=== PATIENT | male | born 1950 | race African-American/Black ===

== ENCOUNTER 2019-08-05 09:00 | Inpatient (IN) ==
[2019-08-05] MEDS ORDERED: DEXTROSE 50% 25 GM/50 ML VIAL IV PRN ×3 (12:04→18:11)
[2019-08-05] MEDS ORDERED: GLUCAGON 1 MG VIAL IM PRN ×2 (12:04→12:13)
[2019-08-05] MEDS ORDERED: ONDANSETRON 4 MG/2 ML VIAL IV PRN (12:04)
[2019-08-05] MEDS ORDERED: ACETAMINOPHEN 325 MG TABLET PO PRN (12:04)
[2019-08-05] MEDS ORDERED: DEXTROSE 10% 250 ML BAG IV PRN (12:10)
[2019-08-05 14:23] LABS: Basophils % 0.1 % (0.0-0.8); Eosinophils # 0.2 10*3/uL (0.0-0.87); Eosinophils % 2.8 % (0.00-10.9); Hematocrit 27.2 VOL% (42.0-52.0); Hemoglobin 8.4 GM/DL (14.0-18.0); Immature Granulocytes % 1.8 %; Immature Granulocytes Absolute 0.12 #; Lymphocytes # 0.5 10*3/uL (1.4-4.0); Mean Corpuscular HGB Conc 30.9 GM/DL (32-36); Mean Corpuscular Volume 86.1 FL (87-102); Mean Platelet Volume 9.5 FL (9.6-12.0); Monocytes % 15.8 % (1.7-12.7); Neutrophils % 72.5 % (38.7-73.9); Platelet Count 217 T/CUMM (130-400); Red Blood Count 3.16 MC/CUMM (3.8-5.5); White Blood Count 6.7 T/CUMM (4-12)
[2019-08-05 14:45] LABS: Alanine Aminotransferase 64 U/L (16-61); Albumin 2.9 G/DL (3.4-5.0); Alkaline Phosphatase 73 U/L (45-117); Aspartate Amino Transferase 77 U/L (0-37); Bilirubin,Total < 0.39 MG/DL (0.2-1.0); Blood Urea Nitrogen 48 MG/DL (7-18); Calcium 9.1 MG/DL (8.5-10.1); Estimated Glom Filtration Rate 18 ML/MIN; Glucose 119 MG/DL (74-106); Osmolality,Calculated 286.8 MOS/KG (273-304); Total Protein 7.9 G/DL (6.4-8.3)
[2019-08-05 14:58] LABS: Anisocytosis 2+; Eosinophils 2 % (0-10); Hypochromasia 1+; Lymphocytes 13 % (20-55); Microcytosis 1+; Segmented Neutrophils 76 % (50-85); Total Cells Counted 100
[2019-08-05 14:59] LABS: Ovalocytes Slight
[2019-08-05 15:55] LABS: Ferritin 641.2 ng/ml (26-388)
[2019-08-05] MEDS ORDERED: FUROSEMIDE 40 MG TABLET PO PRN (15:58)
[2019-08-05 16:31] LABS: Amorphous Crystals,Urine Occasional /HPF (Few); Apearance,Urine Slightly Hazy (Clear); Bacteria,Urine Occasional /HPF (Few); Bilirubin,Urine Negative (Negative); Blood, Urine Negative (Negative); Glucose,Urine (UA) Negative (Negative); Ketones,Urine Negative (Negative); Mucus,Urine Occasional /LPF (Occasional); Nitrite,Urine Negative (Negative); Protein,Urine 100 MG/DL; Squamous Epithelial Cell,Urine Occasional /HPF (0-10); Urine Color Yellow (Yellow); Urine Specific Gravity 1.013 (1.001-1.035); Urine Urobilinogen < 2.0 EU/DL (0.2-1.0)
[2019-08-05] MEDS ORDERED: ENOXAPARIN 60 MG/0.6 ML SYRINGE SUBCUT SCH (18:30)
[2019-08-05] MEDS: ENOXAPARIN 30 MG/0.3 ML SYRINGE SUBCUT SCH (20:16)
[2019-08-05] MEDS: cefTRIAXone 1,000 MG in SYRINGE 1 EACH IV SCH (20:16)
[2019-08-05] MEDS: AZITHROMYCIN INJ 500 MG in SODIUM CHLORIDE 0.9% 250 ML IV SCH (21:30)
[2019-08-05] MEDS: INSULIN LISPRO 100 UNIT/ML SUBCUT SCH (22:23)
[2019-08-06 04:01] LABS: Basophils % 0.2 % (0.0-0.8); Eosinophils # 0.2 10*3/uL (0.0-0.87); Eosinophils % 3.4 % (0.00-10.9); Hematocrit 24.9 VOL% (42.0-52.0); Hemoglobin 7.7 GM/DL (14.0-18.0); Immature Granulocytes % 2.1 %; Immature Granulocytes Absolute 0.11 #; Lymphocytes # 0.6 10*3/uL (1.4-4.0); Lymphocytes % 11.4 % (21.2-54.2); Mean Corpuscular HGB Conc 30.9 GM/DL (32-36); Mean Corpuscular Volume 85.6 FL (87-102); Mean Platelet Volume 9.6 FL (9.6-12.0); Neutrophils % 66.9 % (38.7-73.9); Platelet Count 202 T/CUMM (130-400); Red Blood Count 2.91 MC/CUMM (3.8-5.5); White Blood Count 5.3 T/CUMM (4-12)
[2019-08-06 04:33] LABS: Alanine Aminotransferase 60 U/L (16-61); Albumin 2.5 G/DL (3.4-5.0); Alkaline Phosphatase 66 U/L (45-117); Aspartate Amino Transferase 59 U/L (0-37); Bilirubin,Total < 0.39 MG/DL (0.2-1.0); Blood Urea Nitrogen 58 MG/DL (7-18); Calcium 8.6 MG/DL (8.5-10.1); Estimated Glom Filtration Rate 16 ML/MIN; Glucose 130 MG/DL (74-106); HDL Cholesterol 34 MG/DL (40-60); Osmolality,Calculated 294.5 MOS/KG (273-304); Risk Ratio 3.68; Triglycerides 115 MG/DL (2-150)
[2019-08-06 04:39] LABS: Band Neutrophils 1 % (0-10); Eosinophils 2 % (0-10); Hypochromasia 1+; Lymphocytes 9 % (20-55); Microcytosis Slight; Myelocytes 1 %; Platelet Estimate Normal; Segmented Neutrophils 72 % (50-85); Total Cells Counted 100
[2019-08-06 04:52] LABS: Ferritin 582.5 ng/ml (26-388)
[2019-08-06] MEDS: INSULIN LISPRO 100 UNIT/ML SUBCUT SCH ×4 (08:24→20:02)
[2019-08-06] MEDS: METOPROLOL SUCCINATE XL 100 MG TABLET PO SCH (08:25)
[2019-08-06] MEDS: amLODIPine 10 MG TABLET PO SCH (08:25)
[2019-08-06] MEDS ORDERED: ATORVASTATIN 40 MG TABLET PO SCH (09:00)
[2019-08-06] MEDS ORDERED: PANTOPRAZOLE 40 MG TABLET PO SCH (09:00)
[2019-08-06] MEDS ORDERED: allopurinoL 100 MG TABLET PO SCH (09:00)
[2019-08-06] MEDS: AZITHROMYCIN INJ 500 MG in SODIUM CHLORIDE 0.9% 250 ML IV SCH (19:55)
[2019-08-06] MEDS: ENOXAPARIN 30 MG/0.3 ML SYRINGE SUBCUT SCH (20:02)
[2019-08-06] MEDS: cefTRIAXone 1,000 MG in SYRINGE 1 EACH IV SCH (20:12)
[2019-08-07 07:05] LABS: Basophils % 0.4 % (0.0-0.8); Eosinophils # 0.2 10*3/uL (0.0-0.87); Eosinophils % 4.6 % (0.00-10.9); Hematocrit 25.7 VOL% (42.0-52.0); Immature Granulocytes % 5.2 %; Immature Granulocytes Absolute 0.26 #; Lymphocytes # 0.7 10*3/uL (1.4-4.0); Lymphocytes % 13.3 % (21.2-54.2); Mean Corpuscular HGB Conc 31.1 GM/DL (32-36); Mean Corpuscular Volume 85.7 FL (87-102); Monocytes % 11.9 % (1.7-12.7); Neutrophils % 64.6 % (38.7-73.9); Platelet Count 240 T/CUMM (130-400); Red Cell Distribution Width 15.1 % (9.3-17.3)
[2019-08-07 07:19] LABS: Ferritin 510.4 ng/ml (26-388)
[2019-08-07 07:24] LABS: Alanine Aminotransferase 60 U/L (16-61); Albumin 2.6 G/DL (3.4-5.0); Alkaline Phosphatase 67 U/L (45-117); Aspartate Amino Transferase 45 U/L (0-37); Bilirubin,Total < 0.39 MG/DL (0.2-1.0); Blood Urea Nitrogen 61 MG/DL (7-18); Calcium 8.4 MG/DL (8.5-10.1); Estimated Glom Filtration Rate 17 ML/MIN; Glucose 110 MG/DL (74-106); Osmolality,Calculated 296.4 MOS/KG (273-304)
[2019-08-07 07:37] LABS: Band Neutrophils 6 % (0-10); Eosinophils 2 % (0-10); Lymphocytes 14 % (20-55); Metamyelocytes 1 %; Myelocytes 1 %; Segmented Neutrophils 63 % (50-85); Total Cells Counted 100
[2019-08-07 07:38] LABS: Anisocytosis 1+; Ovalocytes Few; Platelet Estimate Normal; Poikilocytosis Slight
[2019-08-07] MEDS: METOPROLOL SUCCINATE XL 100 MG TABLET PO SCH (08:57)
[2019-08-07] MEDS: INSULIN LISPRO 100 UNIT/ML SUBCUT SCH ×2 (08:58→13:02)
[2019-08-07] MEDS: amLODIPine 10 MG TABLET PO SCH (08:58)
[2019-08-07] MEDS ORDERED: AZITHROMYCIN 250 MG TABLET PO SCH (09:00)
[2019-08-07 13:02] VITALS: BP 157/71
== END 2019-08-07 12:35 | disposition home or self-care (01) | DRG 194 ==
LOC: SUATTDRO 11:07 → N.2E 11:07
PROVIDERS: ADMIT Internal Medicine; ATTEND Internal Medicine

== ENCOUNTER 2022-01-06 12:13 | Inpatient (IN) ==
[2022-01-06] MEDS ORDERED: FUROSEMIDE 100 MG/10 ML VIAL ONE (12:40)
[2022-01-06] MEDS ORDERED: FUROSEMIDE INJ 160 MG in SODIUM CHLORIDE 0.9% 50 ML IV STA ×2 (12:47→12:50)
[2022-01-06 13:17] LABS: Basophils % 0.2 % (0.0-0.8); Eosinophils # 0.2 10*3/uL (0.0-0.87); Eosinophils % 3.5 % (0.00-10.9); Hematocrit 26.1 VOL% (42.0-52.0); Hemoglobin 7.8 GM/DL (14.0-18.0); Immature Granulocytes % 1.4 %; Immature Granulocytes Absolute 0.06 #; Lymphocytes # 0.7 10*3/uL (1.4-4.0); Lymphocytes % 16.1 % (21.2-54.2); Mean Corpuscular HGB Conc 29.9 GM/DL (32-36); Mean Platelet Volume 10.3 FL (9.6-12.0); Monocytes # 0.5 10*3/uL (0.11-0.8); Neutrophils % 67.8 % (38.7-73.9); Platelet Count 153 T/CUMM (130-400); Red Blood Count 3.07 MC/CUMM (3.8-5.5); Red Cell Distribution Width 16.5 % (9.3-17.3); White Blood Count 4.3 T/CUMM (4-12)
[2022-01-06 13:38] LABS: Alanine Aminotransferase 18 U/L (16-61); Albumin 3.4 G/DL (3.4-5.0); Alkaline Phosphatase 84 U/L (45-117); Aspartate Amino Transferase 9 U/L (0-37); Bilirubin,Total < 0.39 MG/DL (0.20-1.00); Blood Urea Nitrogen 55 MG/DL (7-18); Calcium 8.8 MG/DL (8.5-10.1); Carbon Dioxide 20 MMOL/L (21-32); Chloride 116 MMOL/L (98-107); Glucose 109 MG/DL (74-106); Osmolality,Calculated 303.7 MOS/KG (273-304); Potassium 4.3 MMOL/L (3.5-5.1); Sodium 145 MMOL/L (136-145)
[2022-01-06] MEDS ORDERED: ONDANSETRON 4 MG/2 ML VIAL IV PRN (13:56)
[2022-01-06] MEDS ORDERED: BICILLIN LA 1,200,000 UNIT/2 ML SYRINGE IM STA (14:50)
[2022-01-06 16:14] LABS: % Iron Saturation 17.8 % (18-50); Ferritin 173.4 ng/mL (26-388)
[2022-01-06 16:17] LABS: Folate 11.43 NG/ML (5.38-24.0)
[2022-01-06] MEDS: INSULIN LISPRO 100 UNIT/ML SUBCUT SCH ×2 (17:15→20:58)
[2022-01-06] MEDS: HEPARIN 5,000 UNIT/1 ML VIAL SUBCUT SCH (21:02)
[2022-01-07] MEDS ORDERED: METOPROLOL SUCCINATE XL 100 MG TABLET PO ONE (00:17)
[2022-01-07] MEDS: hydrALAZINE 20 MG/1 ML VIAL IV PRN ×2 (04:46→16:50)
[2022-01-07 05:02] LABS: Basophils % 0.3 % (0.0-0.8); Eosinophils # 0.2 10*3/uL (0.0-0.87); Eosinophils % 4.8 % (0.00-10.9); Hematocrit 25.9 VOL% (42.0-52.0); Hemoglobin 7.9 GM/DL (14.0-18.0); Immature Granulocytes % 1.5 %; Immature Granulocytes Absolute 0.06 #; Lymphocytes # 0.7 10*3/uL (1.4-4.0); Lymphocytes % 16.8 % (21.2-54.2); Mean Corpuscular HGB Conc 30.5 GM/DL (32-36); Mean Corpuscular Volume 85.8 FL (87-102); Monocytes # 0.5 10*3/uL (0.11-0.8); Monocytes % 11.7 % (1.7-12.7); Neutrophils % 64.9 % (38.7-73.9); Platelet Count 150 T/CUMM (130-400); Red Blood Count 3.02 MC/CUMM (3.8-5.5); Red Cell Distribution Width 16.3 % (9.3-17.3); White Blood Count 3.9 T/CUMM (4-12)
[2022-01-07 05:20] LABS: Alanine Aminotransferase 19 U/L (16-61); Albumin 3.5 G/DL (3.4-5.0); Alkaline Phosphatase 85 U/L (45-117); Aspartate Amino Transferase 13 U/L (0-37); Bilirubin,Total < 0.39 MG/DL (0.20-1.00); Blood Urea Nitrogen 63 MG/DL (7-18); Calcium 8.9 MG/DL (8.5-10.1); Carbon Dioxide 22 MMOL/L (21-32); Chloride 118 MMOL/L (98-107); Glucose 100 MG/DL (74-106); Osmolality,Calculated 311.3 MOS/KG (273-304); Potassium 4.4 MMOL/L (3.5-5.1); Sodium 148 MMOL/L (136-145); Total Protein 7.2 G/DL (6.4-8.2)
[2022-01-07 05:27] LABS: Risk Ratio 2.32; Thyroid Stimulating Hormone 1.85 uIU/ml (0.358-3.74); VLDL Cholesterol 16.6 MG/DL
[2022-01-07] MEDS ORDERED: FUROSEMIDE 40 MG/4 ML VIAL IV SCH (06:00)
[2022-01-07] MEDS: INSULIN LISPRO 100 UNIT/ML SUBCUT SCH ×4 (07:37→21:33)
[2022-01-07] MEDS ORDERED: FUROSEMIDE 40 MG/4 ML VIAL IV ONE (09:48)
[2022-01-07] MEDS: HEPARIN 5,000 UNIT/1 ML VIAL SUBCUT SCH ×2 (10:17→20:10)
[2022-01-07] MEDS ORDERED: DEXTROSE 10% 250 ML BAG IV PRN (11:26)
[2022-01-07] MEDS ORDERED: GLUCAGON 1 MG VIAL IM PRN (11:26)
[2022-01-07] MEDS: FERRIC GLUCONATE COMPLEX 125 MG in SODIUM CHLORIDE 0.9% 100 ML IV SCH (12:08)
[2022-01-07] MEDS: PANTOPRAZOLE 40 MG TABLET PO SCH (12:08)
[2022-01-07] MEDS: METOPROLOL TARTRATE 100 MG TABLET PO SCH (20:07)
[2022-01-07] MEDS ORDERED: hydrALAZINE 20 MG/1 ML VIAL IV ONE (21:03)
[2022-01-08] MEDS: hydrALAZINE 20 MG/1 ML VIAL IV PRN (00:13)
[2022-01-08 05:44] LABS: Basophils % 0.3 % (0.0-0.8); Eosinophils # 0.2 10*3/uL (0.0-0.87); Eosinophils % 3.9 % (0.00-10.9); Hematocrit 27.9 VOL% (42.0-52.0); Hemoglobin 8.3 GM/DL (14.0-18.0); Immature Granulocytes % 2.1 %; Immature Granulocytes Absolute 0.08 #; Lymphocytes # 0.6 10*3/uL (1.4-4.0); Lymphocytes % 16.4 % (21.2-54.2); Mean Corpuscular HGB Conc 29.7 GM/DL (32-36); Mean Corpuscular Volume 86.1 FL (87-102); Mean Platelet Volume 10.6 FL (9.6-12.0); Monocytes # 0.4 10*3/uL (0.11-0.8); Monocytes % 10.9 % (1.7-12.7); Neutrophils % 66.4 % (38.7-73.9); Platelet Count 161 T/CUMM (130-400); Red Blood Count 3.24 MC/CUMM (3.8-5.5); Red Cell Distribution Width 16.5 % (9.3-17.3); White Blood Count 3.9 T/CUMM (4-12)
[2022-01-08 06:08] LABS: Alanine Aminotransferase 19 U/L (16-61); Albumin 3.5 G/DL (3.4-5.0); Alkaline Phosphatase 86 U/L (45-117); Aspartate Amino Transferase 12 U/L (0-37); Bilirubin,Total < 0.39 MG/DL (0.20-1.00); Blood Urea Nitrogen 67 MG/DL (7-18); Calcium 8.7 MG/DL (8.5-10.1); Carbon Dioxide 21 MMOL/L (21-32); Chloride 115 MMOL/L (98-107); Glucose 111 MG/DL (74-106); Osmolality,Calculated 307.7 MOS/KG (273-304); Potassium 4.2 MMOL/L (3.5-5.1); Sodium 145 MMOL/L (136-145); Total Protein 7.3 G/DL (6.4-8.2)
[2022-01-08] MEDS: INSULIN LISPRO 100 UNIT/ML SUBCUT SCH ×4 (07:29→20:14)
[2022-01-08] MEDS: ASPIRIN EC 81 MG TABLET PO SCH (08:14)
[2022-01-08] MEDS: PANTOPRAZOLE 40 MG TABLET PO SCH (08:15)
[2022-01-08] MEDS: HEPARIN 5,000 UNIT/1 ML VIAL SUBCUT SCH ×2 (08:15→20:16)
[2022-01-08] MEDS: ATORVASTATIN 40 MG TABLET PO SCH (08:15)
[2022-01-08] MEDS: FUROSEMIDE 40 MG/4 ML VIAL IV SCH (08:15)
[2022-01-08] MEDS: METOPROLOL TARTRATE 100 MG TABLET PO SCH ×2 (08:15→20:15)
[2022-01-08] MEDS: FERRIC GLUCONATE COMPLEX 125 MG in SODIUM CHLORIDE 0.9% 100 ML IV SCH (09:23)
[2022-01-08] MEDS: DOCUSATE SODIUM 100 MG CAPSULE PO SCH (20:16)
[2022-01-09] MEDS: guaiFENesin/CODEINE 5 ML LIQUID PO PRN (03:07)
[2022-01-09 04:20] LABS: Basophils % 0.5 % (0.0-0.8); Eosinophils # 0.2 10*3/uL (0.0-0.87); Hematocrit 26.4 VOL% (42.0-52.0); Hemoglobin 7.9 GM/DL (14.0-18.0); Immature Granulocytes % 1.6 %; Immature Granulocytes Absolute 0.06 #; Lymphocytes # 0.3 10*3/uL (1.4-4.0); Lymphocytes % 7.1 % (21.2-54.2); Mean Corpuscular HGB Conc 29.9 GM/DL (32-36); Mean Corpuscular Volume 86.6 FL (87-102); Mean Platelet Volume 10.7 FL (9.6-12.0); Monocytes # 0.6 10*3/uL (0.11-0.8); Monocytes % 15.8 % (1.7-12.7); Platelet Count 132 T/CUMM (130-400); Red Blood Count 3.05 MC/CUMM (3.8-5.5); Red Cell Distribution Width 16.6 % (9.3-17.3); White Blood Count 3.8 T/CUMM (4-12)
[2022-01-09 04:46] LABS: Calcium 8.7 MG/DL (8.5-10.1); Eosinophils 2 % (0-10); Lymphocytes 8 % (20-55); Potassium 4.5 MMOL/L (3.5-5.1); Total Cells Counted 100
[2022-01-09 04:47] LABS: Hypochromia Slight; Microcytosis Slight; Ovalocytes Slight
[2022-01-09 04:48] LABS: Platelet Estimate Normal
[2022-01-09 05:56] LABS: Alanine Aminotransferase 20 U/L (16-61); Albumin 3.5 G/DL (3.4-5.0); Alkaline Phosphatase 82 U/L (45-117); Aspartate Amino Transferase 21 U/L (0-37); Bilirubin,Total < 0.39 MG/DL (0.20-1.00); Blood Urea Nitrogen 67 MG/DL (7-18); Calcium 8.9 MG/DL (8.5-10.1); Carbon Dioxide 18 MMOL/L (21-32); Chloride 113 MMOL/L (98-107); Glucose 107 MG/DL (74-106); Osmolality,Calculated 301.1 MOS/KG (273-304); Potassium 4.5 MMOL/L (3.5-5.1); Sodium 142 MMOL/L (136-145); Total Protein 7.3 G/DL (6.4-8.2)
[2022-01-09] MEDS: METOPROLOL TARTRATE 100 MG TABLET PO SCH ×2 (09:22→21:49)
[2022-01-09] MEDS: ASPIRIN EC 81 MG TABLET PO SCH (09:22)
[2022-01-09] MEDS: PANTOPRAZOLE 40 MG TABLET PO SCH (09:22)
[2022-01-09] MEDS: DOCUSATE SODIUM 100 MG CAPSULE PO SCH ×2 (09:22→21:49)
[2022-01-09] MEDS: ATORVASTATIN 40 MG TABLET PO SCH (09:22)
[2022-01-09] MEDS: FUROSEMIDE 40 MG/4 ML VIAL IV SCH (09:23)
[2022-01-09] MEDS: HEPARIN 5,000 UNIT/1 ML VIAL SUBCUT SCH ×2 (09:24→21:49)
[2022-01-09] MEDS: INSULIN LISPRO 100 UNIT/ML SUBCUT SCH ×3 (11:50→21:50)
[2022-01-09] MEDS: FERRIC GLUCONATE COMPLEX 125 MG in SODIUM CHLORIDE 0.9% 100 ML IV SCH (11:56)
[2022-01-09] MEDS: hydrALAZINE 20 MG/1 ML VIAL IV PRN (11:57)
[2022-01-09] MEDS: DOXAZOSIN 1 MG TABLET PO SCH (15:37)
[2022-01-10] MEDS: hydrALAZINE 20 MG/1 ML VIAL IV PRN (00:29)
[2022-01-10 06:09] LABS: Basophils % 0.2 % (0.0-0.8); Eosinophils # 0.1 10*3/uL (0.0-0.87); Eosinophils % 1.6 % (0.00-10.9); Hematocrit 25.3 VOL% (42.0-52.0); Hemoglobin 7.3 GM/DL (14.0-18.0); Immature Granulocytes % 2.7 %; Immature Granulocytes Absolute 0.12 #; Lymphocytes # 0.7 10*3/uL (1.4-4.0); Lymphocytes % 14.8 % (21.2-54.2); Mean Corpuscular HGB Conc 28.9 GM/DL (32-36); Mean Corpuscular Volume 87.8 FL (87-102); Mean Platelet Volume 10.5 FL (9.6-12.0); Monocytes # 1.1 10*3/uL (0.11-0.8); Monocytes % 25.1 % (1.7-12.7); Neutrophils % 55.6 % (38.7-73.9); Platelet Count 112 T/CUMM (130-400); Red Blood Count 2.88 MC/CUMM (3.8-5.5); Red Cell Distribution Width 16.8 % (9.3-17.3); White Blood Count 4.5 T/CUMM (4-12)
[2022-01-10 06:31] LABS: Hypochromia Slight
[2022-01-10 06:32] LABS: Microcytosis Slight; Ovalocytes Slight
[2022-01-10 06:38] LABS: Calcium 8.3 MG/DL (8.5-10.1); Potassium 4.2 MMOL/L (3.5-5.1)
[2022-01-10 06:39] LABS: Alanine Aminotransferase 23 U/L (16-61); Albumin 3.4 G/DL (3.4-5.0); Alkaline Phosphatase 73 U/L (45-117); Aspartate Amino Transferase 29 U/L (0-37); Bilirubin,Total < 0.39 MG/DL (0.20-1.00); Blood Urea Nitrogen 65 MG/DL (7-18); Calcium 8.3 MG/DL (8.5-10.1); Carbon Dioxide 22 MMOL/L (21-32); Chloride 111 MMOL/L (98-107); Glucose 120 MG/DL (74-106); Osmolality,Calculated 302.1 MOS/KG (273-304); Potassium 4.3 MMOL/L (3.5-5.1); Sodium 142 MMOL/L (136-145); Total Protein 6.6 G/DL (6.4-8.2)
[2022-01-10] MEDS: PANTOPRAZOLE 40 MG TABLET PO SCH (09:42)
[2022-01-10] MEDS: ATORVASTATIN 40 MG TABLET PO SCH (09:42)
[2022-01-10] MEDS: DOCUSATE SODIUM 100 MG CAPSULE PO SCH ×2 (09:42→21:02)
[2022-01-10] MEDS: DOXAZOSIN 1 MG TABLET PO SCH (09:42)
[2022-01-10] MEDS: FUROSEMIDE 40 MG/4 ML VIAL IV SCH (09:42)
[2022-01-10] MEDS: HEPARIN 5,000 UNIT/1 ML VIAL SUBCUT SCH ×2 (09:43→21:04)
[2022-01-10] MEDS: ASPIRIN EC 81 MG TABLET PO SCH (09:43)
[2022-01-10] MEDS: FERRIC GLUCONATE COMPLEX 125 MG in SODIUM CHLORIDE 0.9% 100 ML IV SCH (09:43)
[2022-01-10] MEDS: guaiFENesin/CODEINE 5 ML LIQUID PO PRN (09:49)
[2022-01-10] MEDS: METOPROLOL TARTRATE 100 MG TABLET PO SCH ×2 (09:50→21:02)
[2022-01-10] MEDS ORDERED: MAGNESIUM HYDROXIDE SUSP 30 ML UDCUP PO PRN (12:53)
[2022-01-10] MEDS ORDERED: EPOETIN ALFA-EPBX 10,000 UNIT/ML VIAL SUBCUT ONE ×2 (13:17→14:00)
[2022-01-10] MEDS: INSULIN LISPRO 100 UNIT/ML SUBCUT SCH ×4 (13:48→21:14)
[2022-01-10] MEDS: ACETAMINOPHEN 325 MG TABLET PO PRN ×2 (13:56→21:04)
[2022-01-11 04:56] LABS: Basophils % 0.2 % (0.0-0.8); Eosinophils % 0.7 % (0.00-10.9); Hematocrit 25.1 VOL% (42.0-52.0); Hemoglobin 7.2 GM/DL (14.0-18.0); Immature Granulocytes % 2.4 %; Immature Granulocytes Absolute 0.11 #; Lymphocytes # 0.7 10*3/uL (1.4-4.0); Lymphocytes % 15.9 % (21.2-54.2); Mean Corpuscular HGB Conc 28.7 GM/DL (32-36); Mean Corpuscular Volume 90.6 FL (87-102); Mean Platelet Volume 11.3 FL (9.6-12.0); Monocytes % 22.9 % (1.7-12.7); Neutrophils % 57.9 % (38.7-73.9); Platelet Count 114 T/CUMM (130-400); Red Blood Count 2.77 MC/CUMM (3.8-5.5); Red Cell Distribution Width 16.9 % (9.3-17.3); White Blood Count 4.5 T/CUMM (4-12)
[2022-01-11 05:20] LABS: Band Neutrophils 1 % (0-10); Eosinophils 2 % (0-10); Lymphocytes 16 % (20-55); Total Cells Counted 100
[2022-01-11 05:21] LABS: Hypochromia Slight; Microcytosis Slight
[2022-01-11 05:22] LABS: Ovalocytes Slight
[2022-01-11 05:45] LABS: Alanine Aminotransferase 25 U/L (16-61); Albumin 3.2 G/DL (3.4-5.0); Alkaline Phosphatase 75 U/L (45-117); Aspartate Amino Transferase 29 U/L (0-37); Bilirubin,Total < 0.39 MG/DL (0.20-1.00); Blood Urea Nitrogen 74 MG/DL (7-18); Calcium 8.2 MG/DL (8.5-10.1); Carbon Dioxide 22 MMOL/L (21-32); Chloride 111 MMOL/L (98-107); Glucose 127 MG/DL (74-106); Osmolality,Calculated 306.1 MOS/KG (273-304); Potassium 4.6 MMOL/L (3.5-5.1); Sodium 142 MMOL/L (136-145)
[2022-01-11] MEDS: INSULIN LISPRO 100 UNIT/ML SUBCUT SCH ×4 (07:52→20:46)
[2022-01-11] MEDS: ACETAMINOPHEN 325 MG TABLET PO PRN ×2 (08:35→21:34)
[2022-01-11] MEDS: DOCUSATE SODIUM 100 MG CAPSULE PO SCH ×2 (08:35→20:43)
[2022-01-11] MEDS: DOXAZOSIN 1 MG TABLET PO SCH (08:36)
[2022-01-11] MEDS: PANTOPRAZOLE 40 MG TABLET PO SCH (08:36)
[2022-01-11] MEDS: ASPIRIN EC 81 MG TABLET PO SCH (08:37)
[2022-01-11] MEDS: ATORVASTATIN 40 MG TABLET PO SCH (08:37)
[2022-01-11] MEDS: HEPARIN 5,000 UNIT/1 ML VIAL SUBCUT SCH (08:38)
[2022-01-11] MEDS: METOPROLOL TARTRATE 100 MG TABLET PO SCH ×2 (08:39→20:46)
[2022-01-11] MEDS: FERRIC GLUCONATE COMPLEX 125 MG in SODIUM CHLORIDE 0.9% 100 ML IV SCH (08:41)
[2022-01-11] MEDS: POLYETHYLENE GLYCOL POWDER 17 GM PACK PO SCH (08:50)
[2022-01-11] MEDS ORDERED: FUROSEMIDE 40 MG/4 ML VIAL IV SCH (09:00)
[2022-01-11 14:35] LABS: Bacteria,Urine Occasional /HPF (Few); Bilirubin,Urine Negative (Negative); Blood, Urine Small mg/dL (Negative); Glucose,Urine (UA) Negative (Negative); Ketones,Urine Negative (Negative); Mucus,Urine Occasional /LPF (Occasional); Nitrite,Urine Negative (Negative); Protein,Urine 100 mg/dL (Negative); Urine Appearance CLEAR (Clear); Urine Color Straw (Yellow); Urine Urobilinogen < 2.0 eU/dL (<2.0)
[2022-01-12 07:38] LABS: Basophils % 0.2 % (0.0-0.8); Eosinophils % 0.8 % (0.00-10.9); Hematocrit 25.4 VOL% (42.0-52.0); Hemoglobin 7.3 GM/DL (14.0-18.0); Immature Granulocytes % 1.9 %; Immature Granulocytes Absolute 0.09 #; Lymphocytes # 0.9 10*3/uL (1.4-4.0); Lymphocytes % 18.3 % (21.2-54.2); Mean Corpuscular HGB Conc 28.7 GM/DL (32-36); Mean Corpuscular Volume 89.4 FL (87-102); Mean Platelet Volume 10.2 FL (9.6-12.0); Monocytes # 0.8 10*3/uL (0.11-0.8); Monocytes % 16.4 % (1.7-12.7); Neutrophils % 62.4 % (38.7-73.9); Platelet Count 116 T/CUMM (130-400); Red Blood Count 2.84 MC/CUMM (3.8-5.5); Red Cell Distribution Width 16.8 % (9.3-17.3); White Blood Count 4.8 T/CUMM (4-12)
[2022-01-12 07:54] LABS: Calcium 7.9 MG/DL (8.5-10.1); Osmolality,Calculated 308.3 MOS/KG (273-304); Potassium 4.6 MMOL/L (3.5-5.1)
[2022-01-12 07:59] LABS: Band Neutrophils 1 % (0-10); Hypochromia Slight; Lymphocytes 10 % (20-55); Microcytosis Slight; Ovalocytes Slight; Total Cells Counted 100
[2022-01-12] MEDS: METOPROLOL TARTRATE 100 MG TABLET PO SCH ×3 (07:59→21:08)
[2022-01-12] MEDS: ACETAMINOPHEN 325 MG TABLET PO PRN ×2 (07:59→18:14)
[2022-01-12] MEDS ORDERED: propofoL 200 MG/20 ML VIAL IV ONE (08:04)
[2022-01-12] MEDS ORDERED: MIDAZOLAM 2 MG/2 ML VIAL ONE (08:04)
[2022-01-12] MEDS ORDERED: LIDOCAINE 2% 5 ML VIAL ONE (08:04)
[2022-01-12] MEDS ORDERED: KETAMINE 500 MG/10 ML VIAL ONE (08:05)
[2022-01-12] MEDS ORDERED: HEPARIN 5,000 UNIT/1 ML VIAL ONE (08:47)
[2022-01-12] MEDS ORDERED: BUPIVACAINE MPF 0.25% 10 ML VIAL ONE (08:47)
[2022-01-12] MEDS: DOCUSATE SODIUM 100 MG CAPSULE PO SCH ×2 (08:50→21:08)
[2022-01-12] MEDS: ATORVASTATIN 40 MG TABLET PO SCH (08:50)
[2022-01-12] MEDS: INSULIN LISPRO 100 UNIT/ML SUBCUT SCH ×4 (08:50→21:09)
[2022-01-12] MEDS: ASPIRIN EC 81 MG TABLET PO SCH (08:50)
[2022-01-12] MEDS: POLYETHYLENE GLYCOL POWDER 17 GM PACK PO SCH (08:51)
[2022-01-12] MEDS ORDERED: SODIUM CHLORIDE 0.9% 250 ML IV SCH (09:00)
[2022-01-12] MEDS ORDERED: GLYCOPYRROLATE 0.4 MG/2 ML VIAL ONE (10:08)
[2022-01-12] MEDS: PANTOPRAZOLE 40 MG TABLET PO SCH (10:10)
[2022-01-12 11:36] LABS: Hepatitis B Core IgM Quant 0.05 Index; Hepatitis B Surface Ag Quant < 0.10 Index; Hepatitis B Surface Ag Result Non-Reactive (NonReactive); Hepatitis C Virus Ab Quant 0.05 Index; Hepatitis C Virus Ab Result Non-Reactive (NonReactive)
[2022-01-12] MEDS ORDERED: HEPARIN 10,000 UNIT/10 ML VIAL IV SCH (13:15)
[2022-01-12] MEDS: FERRIC GLUCONATE COMPLEX 125 MG in SODIUM CHLORIDE 0.9% 100 ML IV SCH (17:11)
[2022-01-12] MEDS: CLORAZEPATE 3.75 MG TABLET PO PRN (18:14)
[2022-01-13] MEDS ORDERED: SODIUM CHLORIDE 0.65% NASAL SPRAY 45 ML BOTTLE BOTH NARES PRN (01:33)
[2022-01-13] MEDS: ALBUTEROL/IPRATROPIUM 3 ML NEB RESP TX PRN ×2 (05:06→20:05)
[2022-01-13 06:55] LABS: Basophils % 0.2 % (0.0-0.8); Eosinophils # 0.1 10*3/uL (0.0-0.87); Eosinophils % 1.2 % (0.00-10.9); Hemoglobin 7.9 GM/DL (14.0-18.0); Immature Granulocytes % 2.8 %; Immature Granulocytes Absolute 0.16 #; Lymphocytes # 0.8 10*3/uL (1.4-4.0); Lymphocytes % 14.9 % (21.2-54.2); Mean Corpuscular HGB Conc 29.3 GM/DL (32-36); Mean Corpuscular Volume 90.3 FL (87-102); Mean Platelet Volume 11.2 FL (9.6-12.0); Monocytes # 0.7 10*3/uL (0.11-0.8); Monocytes % 11.9 % (1.7-12.7); Platelet Count 146 T/CUMM (130-400); Red Blood Count 2.99 MC/CUMM (3.8-5.5); Red Cell Distribution Width 16.6 % (9.3-17.3); White Blood Count 5.6 T/CUMM (4-12)
[2022-01-13 07:17] LABS: Calcium 8.4 MG/DL (8.5-10.1); Osmolality,Calculated 300.4 MOS/KG (273-304); Potassium 4.7 MMOL/L (3.5-5.1)
[2022-01-13 07:53] LABS: ABG Base Excess -6.4 MMOL/L (-2.5-2.5); ABG HCO3 19.1 MMOL/L (20-26); ABG Oxygen Saturation 92.2 % (95-100); ABG PO2 77.7 MM HG (80-95); ABG TCO2 23.6 MMOL/L (23-27)
[2022-01-13 07:55] LABS: ABG PCO2 77.2 MM HG (35-48); ABG PH 7.104 (7.35-7.45)
[2022-01-13] MEDS: INSULIN LISPRO 100 UNIT/ML SUBCUT SCH ×3 (07:57→18:18)
[2022-01-13] MEDS ORDERED: FUROSEMIDE 40 MG/4 ML VIAL IV ONE (08:00)
[2022-01-13] MEDS ORDERED: ROCURONIUM 100 MG/10 ML VIAL IV ONE ×2 (08:31→08:44)
[2022-01-13] MEDS ORDERED: ETOMIDATE 20 MG/10 ML VIAL IV ONE ×3 (08:31→09:08)
[2022-01-13 08:48] LABS: Amorphous Crystals,Urine Few /HPF (Few); Bilirubin,Urine Negative (Negative); Blood, Urine Moderate mg/dL (Negative); Glucose,Urine (UA) Negative (Negative); Ketones,Urine Negative (Negative); Mucus,Urine Occasional /LPF (Occasional); Nitrite,Urine Negative (Negative); Protein,Urine 100 mg/dL (Negative); Squamous Epithelial Cell,Urine Occasional /HPF (0-10); Urine Appearance Slightly Hazy (Clear); Urine Color Yellow (Yellow); Urine Specific Gravity 1.014 (1.001-1.035); Urine Urobilinogen < 2.0 eU/dL (<2.0)
[2022-01-13 09:44] LABS: ABG Base Excess -5.6 MMOL/L (-2.5-2.5); ABG HCO3 19.8 MMOL/L (20-26); ABG Oxygen Saturation 99.1 % (95-100); ABG PCO2 51.9 MM HG (35-48); ABG PH 7.233 (7.35-7.45); ABG TCO2 20.9 MMOL/L (23-27)
[2022-01-13] MEDS: DOCUSATE SODIUM 100 MG CAPSULE PO SCH (10:47)
[2022-01-13] MEDS: ASPIRIN EC 81 MG TABLET PO SCH (10:47)
[2022-01-13] MEDS: ATORVASTATIN 40 MG TABLET PO SCH (10:47)
[2022-01-13] MEDS: PANTOPRAZOLE 40 MG TABLET PO SCH (10:48)
[2022-01-13] MEDS: POLYETHYLENE GLYCOL POWDER 17 GM PACK PO SCH (10:48)
[2022-01-13] MEDS: METOPROLOL TARTRATE 100 MG TABLET PO SCH ×2 (10:48→21:17)
[2022-01-13] MEDS: PHENYLEPHRINE DRIP 40 MG/250 ML PREMIX IV PRN ×2 (11:10→13:48)
[2022-01-13] MEDS: FERRIC GLUCONATE COMPLEX 125 MG in SODIUM CHLORIDE 0.9% 100 ML IV SCH (11:17)
[2022-01-13] MEDS: fentaNYL INJ 1,250 MCG in SODIUM CHLORIDE 0.9% 225 ML IV PRN ×3 (11:58→22:18)
[2022-01-13] MEDS: MIDAZOLAM 100 MG in SODIUM CHLORIDE 0.9% 80 ML IV PRN ×2 (12:06→19:30)
[2022-01-13] MEDS: PHENYLEPHRINE INJ 160 MG in SODIUM CHLORIDE 0.9% 234 ML IV PRN (16:01)
[2022-01-14] MEDS: INSULIN LISPRO 100 UNIT/ML SUBCUT SCH ×4 (00:12→18:09)
[2022-01-14] MEDS: MIDAZOLAM 100 MG in SODIUM CHLORIDE 0.9% 80 ML IV PRN ×3 (02:51→20:14)
[2022-01-14] MEDS: fentaNYL INJ 1,250 MCG in SODIUM CHLORIDE 0.9% 225 ML IV PRN ×4 (02:51→19:22)
[2022-01-14 03:55] LABS: ABG Base Excess -1.6 MMOL/L (-2.5-2.5); ABG HCO3 23.1 MMOL/L (20-26); ABG Oxygen Saturation 99.1 % (95-100); ABG PCO2 44.3 MM HG (35-48); ABG PH 7.343 (7.35-7.45); ABG TCO2 22.8 MMOL/L (23-27)
[2022-01-14 04:00] LABS: Basophils % 0.3 % (0.0-0.8); Eosinophils # 0.1 10*3/uL (0.0-0.87); Eosinophils % 2.4 % (0.00-10.9); Hematocrit 23.8 VOL% (42.0-52.0); Hemoglobin 7.2 GM/DL (14.0-18.0); Immature Granulocytes % 1.6 %; Immature Granulocytes Absolute 0.09 #; Lymphocytes # 0.9 10*3/uL (1.4-4.0); Lymphocytes % 15.9 % (21.2-54.2); Mean Corpuscular HGB Conc 30.3 GM/DL (32-36); Mean Corpuscular Volume 86.2 FL (87-102); Mean Platelet Volume 9.9 FL (9.6-12.0); Monocytes # 0.6 10*3/uL (0.11-0.8); Monocytes % 11.1 % (1.7-12.7); Neutrophils % 68.7 % (38.7-73.9); Platelet Count 142 T/CUMM (130-400); Red Blood Count 2.76 MC/CUMM (3.8-5.5); Red Cell Distribution Width 16.7 % (9.3-17.3); White Blood Count 5.7 T/CUMM (4-12)
[2022-01-14 04:10] LABS: Calcium 8.4 MG/DL (8.5-10.1); Osmolality,Calculated 293.1 MOS/KG (273-304); Potassium 3.6 MMOL/L (3.5-5.1)
[2022-01-14 04:24] LABS: Eosinophils 3 % (0-10); Lymphocytes 15 % (20-55); Platelet Estimate Decreased; Total Cells Counted 100
[2022-01-14] MEDS: POLYETHYLENE GLYCOL POWDER 17 GM PACK PO SCH (08:29)
[2022-01-14] MEDS: ASPIRIN EC 81 MG TABLET PO SCH (08:30)
[2022-01-14] MEDS: METOPROLOL TARTRATE 100 MG TABLET PO SCH ×2 (08:30→22:13)
[2022-01-14] MEDS: FERRIC GLUCONATE COMPLEX 125 MG in SODIUM CHLORIDE 0.9% 100 ML IV SCH (08:30)
[2022-01-14] MEDS ORDERED: SODIUM CHLORIDE 0.9% 1,000 ML IV PRN (08:45)
[2022-01-14] MEDS: chlorproMAZINE INJ 25 MG in SODIUM CHLORIDE 0.9% 100 ML IV SCH ×2 (11:34→23:43)
[2022-01-14] MEDS: CETIRIZINE 1 MG/ML 30 ML/BOTTLE PO SCH (18:34)
[2022-01-15] MEDS: METOPROLOL TARTRATE 100 MG TABLET PO SCH ×3 (00:24→20:41)
[2022-01-15] MEDS: INSULIN LISPRO 100 UNIT/ML SUBCUT SCH ×5 (00:28→23:47)
[2022-01-15] MEDS: PHENYLEPHRINE INJ 160 MG in SODIUM CHLORIDE 0.9% 234 ML IV PRN (00:36)
[2022-01-15] MEDS: fentaNYL INJ 1,250 MCG in SODIUM CHLORIDE 0.9% 225 ML IV PRN ×2 (00:37→05:48)
[2022-01-15] MEDS: MIDAZOLAM 100 MG in SODIUM CHLORIDE 0.9% 80 ML IV PRN (03:48)
[2022-01-15 03:53] LABS: ABG HCO3 22.7 MMOL/L (20-26); ABG Oxygen Saturation 99.6 % (95-100); ABG PCO2 36.1 MM HG (35-48); ABG PH 7.401 (7.35-7.45)
[2022-01-15 04:00] LABS: Basophils % 0.3 % (0.0-0.8); Eosinophils # 0.1 10*3/uL (0.0-0.87); Eosinophils % 1.8 % (0.00-10.9); Hematocrit 25.7 VOL% (42.0-52.0); Hemoglobin 7.9 GM/DL (14.0-18.0); Immature Granulocytes % 1.7 %; Immature Granulocytes Absolute 0.13 #; Lymphocytes # 0.9 10*3/uL (1.4-4.0); Lymphocytes % 11.3 % (21.2-54.2); Mean Corpuscular HGB Conc 30.7 GM/DL (32-36); Mean Platelet Volume 10.2 FL (9.6-12.0); Monocytes # 0.9 10*3/uL (0.11-0.8); Monocytes % 11.4 % (1.7-12.7); NRBC # 0.09 10*3/uL; Neutrophils % 73.5 % (38.7-73.9); Platelet Count 134 T/CUMM (130-400); Red Blood Count 2.92 MC/CUMM (3.8-5.5); Red Cell Distribution Width 16.3 % (9.3-17.3); White Blood Count 7.8 T/CUMM (4-12)
[2022-01-15 04:14] LABS: Calcium 8.5 MG/DL (8.5-10.1); Osmolality,Calculated 285.5 MOS/KG (273-304); Potassium 3.4 MMOL/L (3.5-5.1)
[2022-01-15 04:20] LABS: Hypochromia Slight; Lymphocytes 10 % (20-55); Microcytosis Slight; Nucleated Red Blood Cells 3 /100 WBC (0-5); Ovalocytes Slight; Platelet Estimate Normal; Total Cells Counted 100
[2022-01-15] MEDS ORDERED: SCOPOLAMINE 1.5 MG PATCH TRANSDERM ONE (09:01)
[2022-01-15] MEDS: POLYETHYLENE GLYCOL POWDER 17 GM PACK PO SCH (09:20)
[2022-01-15] MEDS: ASPIRIN EC 81 MG TABLET PO SCH (09:20)
[2022-01-15] MEDS: CETIRIZINE 1 MG/ML 30 ML/BOTTLE PO SCH (09:20)
[2022-01-15] MEDS ORDERED: chlorproMAZINE INJ 25 MG in SODIUM CHLORIDE 0.9% 100 ML IV ONE (12:21)
[2022-01-16 03:18] LABS: ABG Base Excess -2.5 MMOL/L (-2.5-2.5); ABG HCO3 22.3 MMOL/L (20-26); ABG Oxygen Saturation 98.3 % (95-100); ABG PCO2 45.9 MM HG (35-48); ABG PH 7.323 (7.35-7.45); ABG TCO2 21.1 MMOL/L (23-27)
[2022-01-16 03:21] LABS: Basophils % 0.2 % (0.0-0.8); Eosinophils # 0.1 10*3/uL (0.0-0.87); Eosinophils % 2.5 % (0.00-10.9); Hematocrit 24.8 VOL% (42.0-52.0); Hemoglobin 7.5 GM/DL (14.0-18.0); Immature Granulocytes % 2.5 %; Immature Granulocytes Absolute 0.14 #; Lymphocytes # 0.6 10*3/uL (1.4-4.0); Lymphocytes % 10.1 % (21.2-54.2); Mean Corpuscular HGB Conc 30.2 GM/DL (32-36); Mean Corpuscular Volume 88.6 FL (87-102); Monocytes # 0.4 10*3/uL (0.11-0.8); Monocytes % 7.5 % (1.7-12.7); NRBC # 0.05 10*3/uL; Neutrophils % 77.2 % (38.7-73.9); Platelet Count 123 T/CUMM (130-400); Red Cell Distribution Width 16.4 % (9.3-17.3); White Blood Count 5.6 T/CUMM (4-12)
[2022-01-16 03:35] LABS: Calcium 8.5 MG/DL (8.5-10.1); Osmolality,Calculated 288.8 MOS/KG (273-304); Potassium 3.7 MMOL/L (3.5-5.1)
[2022-01-16 03:50] LABS: Eosinophils 3 % (0-10); Lymphocytes 9 % (20-55); Nucleated Red Blood Cells 1 /100 WBC (0-5); Total Cells Counted 100
[2022-01-16 03:51] LABS: Anisocytosis Slight; Hypochromia Slight; Microcytosis Slight; Ovalocytes Slight; Platelet Estimate Adequate
[2022-01-16] MEDS: INSULIN LISPRO 100 UNIT/ML SUBCUT SCH ×4 (05:23→23:30)
[2022-01-16] MEDS: METOPROLOL TARTRATE 100 MG TABLET PO SCH ×2 (08:27→20:51)
[2022-01-16] MEDS: CETIRIZINE 1 MG/ML 30 ML/BOTTLE PO SCH (08:27)
[2022-01-16] MEDS: ASPIRIN EC 81 MG TABLET PO SCH (08:27)
[2022-01-16] MEDS: POLYETHYLENE GLYCOL POWDER 17 GM PACK PO SCH (08:27)
[2022-01-17 03:56] LABS: ABG Base Excess -2.8 MMOL/L (-2.5-2.5); ABG HCO3 22.1 MMOL/L (20-26); ABG Oxygen Saturation 97.8 % (95-100); ABG PCO2 46.6 MM HG (35-48); ABG TCO2 22.1 MMOL/L (23-27)
[2022-01-17 04:04] LABS: Basophils % 0.2 % (0.0-0.8); Eosinophils # 0.1 10*3/uL (0.0-0.87); Eosinophils % 1.3 % (0.00-10.9); Hematocrit 24.3 VOL% (42.0-52.0); Hemoglobin 7.1 GM/DL (14.0-18.0); Immature Granulocytes % 4.3 %; Immature Granulocytes Absolute 0.27 #; Lymphocytes # 0.5 10*3/uL (1.4-4.0); Lymphocytes % 7.8 % (21.2-54.2); Mean Corpuscular HGB Conc 29.2 GM/DL (32-36); Mean Platelet Volume 11.1 FL (9.6-12.0); Monocytes # 0.6 10*3/uL (0.11-0.8); Monocytes % 10.1 % (1.7-12.7); Neutrophils % 76.3 % (38.7-73.9); Platelet Count 144 T/CUMM (130-400); Red Cell Distribution Width 16.6 % (9.3-17.3); White Blood Count 6.3 T/CUMM (4-12)
[2022-01-17 04:19] LABS: Calcium 8.1 MG/DL (8.5-10.1); Osmolality,Calculated 297.7 MOS/KG (273-304); Potassium 3.7 MMOL/L (3.5-5.1)
[2022-01-17 04:25] LABS: Band Neutrophils 1 % (0-10); Eosinophils 1 % (0-10); Lymphocytes 6 % (20-55); Myelocytes 2 %; Nucleated Red Blood Cells 1 /100 WBC (0-5); Total Cells Counted 100
[2022-01-17 04:26] LABS: Hypochromia Slight; Microcytosis 1+; Ovalocytes Slight
[2022-01-17] MEDS: INSULIN LISPRO 100 UNIT/ML SUBCUT SCH ×4 (05:58→23:39)
[2022-01-17] MEDS ORDERED: SODIUM CHLORIDE 0.9% 1,000 ML IV PRN (07:44)
[2022-01-17] MEDS: POLYETHYLENE GLYCOL POWDER 17 GM PACK PO SCH (10:05)
[2022-01-17] MEDS: ASPIRIN EC 81 MG TABLET PO SCH (10:05)
[2022-01-17] MEDS: CETIRIZINE 1 MG/ML 30 ML/BOTTLE PO SCH (10:05)
[2022-01-17] MEDS: METOPROLOL TARTRATE 100 MG TABLET PO SCH ×2 (10:05→20:03)
[2022-01-17] MEDS: AZITHROMYCIN INJ 500 MG in SODIUM CHLORIDE 0.9% 250 ML IV SCH (10:34)
[2022-01-17] MEDS: CEFEPIME 1,000 MG in SODIUM CHLORIDE 0.9% 100 ML IV SCH (10:38)
[2022-01-17] MEDS: PANTOPRAZOLE 40 MG VIAL IV SCH (14:54)
[2022-01-17] MEDS: CLORAZEPATE 3.75 MG TABLET PO PRN (20:03)
[2022-01-17] MEDS ORDERED: LORazepam 2 MG/1 ML VIAL IV ONE (22:51)
[2022-01-18 04:08] LABS: ABG Base Excess 2.6 MMOL/L (-2.5-2.5); ABG HCO3 26.7 MMOL/L (20-26); ABG Oxygen Saturation 98.5 % (95-100); ABG PCO2 42.3 MM HG (35-48); ABG PH 7.418 (7.35-7.45); ABG TCO2 25.4 MMOL/L (23-27)
[2022-01-18 04:19] LABS: Basophils % 0.3 % (0.0-0.8); Eosinophils # 0.2 10*3/uL (0.0-0.87); Eosinophils % 2.2 % (0.00-10.9); Immature Granulocytes % 4.2 %; Immature Granulocytes Absolute 0.29 #; Lymphocytes # 0.4 10*3/uL (1.4-4.0); Lymphocytes % 5.8 % (21.2-54.2); Mean Corpuscular HGB Conc 30.8 GM/DL (32-36); Mean Corpuscular Volume 87.5 FL (87-102); Mean Platelet Volume 10.8 FL (9.6-12.0); Monocytes # 0.9 10*3/uL (0.11-0.8); Monocytes % 12.3 % (1.7-12.7); Neutrophils % 75.2 % (38.7-73.9); Platelet Count 149 T/CUMM (130-400); Red Blood Count 2.97 MC/CUMM (3.8-5.5); Red Cell Distribution Width 16.1 % (9.3-17.3); White Blood Count 6.9 T/CUMM (4-12)
[2022-01-18 04:27] LABS: Potassium 3.5 MMOL/L (3.5-5.1)
[2022-01-18 04:47] LABS: Lymphocytes 10 % (20-55); Platelet Estimate Adequate; Total Cells Counted 100
[2022-01-18 04:48] LABS: Hypochromia Slight; Microcytosis Slight
[2022-01-18] MEDS: INSULIN LISPRO 100 UNIT/ML SUBCUT SCH ×3 (05:38→17:57)
[2022-01-18] MEDS: PANTOPRAZOLE 40 MG VIAL IV SCH (09:51)
[2022-01-18] MEDS: POLYETHYLENE GLYCOL POWDER 17 GM PACK PO SCH (09:51)
[2022-01-18] MEDS: METOPROLOL TARTRATE 100 MG TABLET PO SCH ×2 (09:51→20:02)
[2022-01-18] MEDS: ASPIRIN EC 81 MG TABLET PO SCH (09:51)
[2022-01-18] MEDS: methylPREDNISolone SOD SUC 40 MG/1 ML VIAL IV SCH ×2 (09:53→17:49)
[2022-01-18] MEDS: CEFEPIME 1,000 MG in SODIUM CHLORIDE 0.9% 100 ML IV SCH (11:01)
[2022-01-18] MEDS: AZITHROMYCIN INJ 500 MG in SODIUM CHLORIDE 0.9% 250 ML IV SCH (11:02)
[2022-01-18] MEDS: hydrALAZINE 20 MG/1 ML VIAL IV PRN ×2 (12:19→19:36)
[2022-01-18] MEDS: ALBUTEROL/IPRATROPIUM 3 ML NEB RESP TX SCH ×2 (13:00→19:00)
[2022-01-18] MEDS ORDERED: LABETALOL 20 MG/4 ML SYRINGE IV ONE (15:23)
[2022-01-18] MEDS ORDERED: MORPHINE 2 MG/1 ML SYRINGE IV ONE (16:10)
[2022-01-18] MEDS ORDERED: hydrALAZINE 20 MG/1 ML VIAL IV ONE ×2 (16:48→20:54)
[2022-01-18] MEDS: ATORVASTATIN 40 MG TABLET PO SCH (20:02)
[2022-01-18] MEDS: HEPARIN 5,000 UNIT/1 ML VIAL SUBCUT SCH (21:19)
[2022-01-18] MEDS ORDERED: LORazepam 2 MG/1 ML VIAL IV ONE (21:22)
[2022-01-18] MEDS: niCARdipine INJ 50 MG in SODIUM CHLORIDE 0.9% 230 ML IV PRN (21:50)
[2022-01-19] MEDS: INSULIN LISPRO 100 UNIT/ML SUBCUT SCH ×4 (00:01→18:51)
[2022-01-19] MEDS: methylPREDNISolone SOD SUC 40 MG/1 ML VIAL IV SCH ×3 (00:02→17:00)
[2022-01-19] MEDS: ALBUTEROL/IPRATROPIUM 3 ML NEB RESP TX SCH ×5 (01:08→23:44)
[2022-01-19 04:39] LABS: ABG Base Excess -3.6 MMOL/L (-2.5-2.5); ABG HCO3 21.4 MMOL/L (20-26); ABG Oxygen Saturation 98.2 % (95-100); ABG PCO2 38.3 MM HG (35-48); ABG PH 7.358 (7.35-7.45); ABG TCO2 19.8 MMOL/L (23-27)
[2022-01-19 04:40] LABS: Basophils % 0.2 % (0.0-0.8); Hematocrit 30.9 VOL% (42.0-52.0); Hemoglobin 9.5 GM/DL (14.0-18.0); Immature Granulocytes % 6.6 %; Immature Granulocytes Absolute 0.59 #; Lymphocytes # 0.3 10*3/uL (1.4-4.0); Lymphocytes % 3.7 % (21.2-54.2); Mean Corpuscular HGB Conc 30.7 GM/DL (32-36); Mean Platelet Volume 10.9 FL (9.6-12.0); Monocytes # 0.6 10*3/uL (0.11-0.8); Monocytes % 6.6 % (1.7-12.7); NRBC # 0.02 10*3/uL; Neutrophils % 82.9 % (38.7-73.9); Platelet Count 174 T/CUMM (130-400); Red Blood Count 3.51 MC/CUMM (3.8-5.5)
[2022-01-19 04:56] LABS: Alanine Aminotransferase 25 U/L (16-61); Albumin 2.2 G/DL (3.4-5.0); Alkaline Phosphatase 71 U/L (45-117); Aspartate Amino Transferase 17 U/L (0-37); Bilirubin,Total < 0.39 MG/DL (0.20-1.00); Blood Urea Nitrogen 77 MG/DL (7-18); Calcium 9.6 MG/DL (8.5-10.1); Carbon Dioxide 22 MMOL/L (21-32); Chloride 102 MMOL/L (98-107); Glucose 271 MG/DL (74-106); Osmolality,Calculated 302.1 MOS/KG (273-304); Potassium 3.9 MMOL/L (3.5-5.1); Sodium 135 MMOL/L (136-145); Total Protein 7.5 G/DL (6.4-8.2)
[2022-01-19 05:16] LABS: Hypochromia Slight; Lymphocytes 2 % (20-55); Microcytosis Slight; Poikilocytosis Slight; Total Cells Counted 100
[2022-01-19 05:17] LABS: Acanthocytes Few; Platelet Estimate Normal
[2022-01-19] MEDS: DOXAZOSIN 1 MG TABLET PO SCH (08:35)
[2022-01-19] MEDS: POLYETHYLENE GLYCOL POWDER 17 GM PACK PO SCH (08:35)
[2022-01-19] MEDS: METOPROLOL TARTRATE 100 MG TABLET PO SCH ×2 (08:35→20:02)
[2022-01-19] MEDS: ASPIRIN EC 81 MG TABLET PO SCH (08:35)
[2022-01-19] MEDS: HEPARIN 5,000 UNIT/1 ML VIAL SUBCUT SCH ×2 (08:36→20:02)
[2022-01-19] MEDS: PANTOPRAZOLE 40 MG VIAL IV SCH (08:37)
[2022-01-19] MEDS: INSULIN GLARGINE 100 UNIT/ML SUBCUT SCH (09:13)
[2022-01-19] MEDS: cefTRIAXone 2,000 MG in SODIUM CHLORIDE 0.9% 100 ML IV SCH (10:53)
[2022-01-19] MEDS: AZITHROMYCIN INJ 500 MG in SODIUM CHLORIDE 0.9% 250 ML IV SCH (11:24)
[2022-01-19] MEDS: niCARdipine INJ 50 MG in SODIUM CHLORIDE 0.9% 230 ML IV PRN (12:56)
[2022-01-19] MEDS: hydrALAZINE 25 MG TABLET PO SCH ×2 (14:20→20:02)
[2022-01-19] MEDS: ATORVASTATIN 40 MG TABLET PO SCH (20:02)
[2022-01-20] MEDS: INSULIN LISPRO 100 UNIT/ML SUBCUT SCH ×4 (00:05→18:37)
[2022-01-20] MEDS: methylPREDNISolone SOD SUC 40 MG/1 ML VIAL IV SCH ×3 (00:06→16:43)
[2022-01-20 03:56] LABS: ABG HCO3 22.7 MMOL/L (20-26); ABG PCO2 40.9 MM HG (35-48); ABG PH 7.362 (7.35-7.45); ABG TCO2 20.9 MMOL/L (23-27)
[2022-01-20 04:20] LABS: Basophils % 0.2 % (0.0-0.8); Hematocrit 30.6 VOL% (42.0-52.0); Hemoglobin 9.5 GM/DL (14.0-18.0); Immature Granulocytes % 6.5 %; Immature Granulocytes Absolute 0.77 #; Lymphocytes # 0.4 10*3/uL (1.4-4.0); Lymphocytes % 3.1 % (21.2-54.2); Mean Corpuscular Volume 86.4 FL (87-102); Mean Platelet Volume 10.7 FL (9.6-12.0); Monocytes # 0.9 10*3/uL (0.11-0.8); Monocytes % 7.9 % (1.7-12.7); NRBC # 0.02 10*3/uL; Neutrophils % 82.3 % (38.7-73.9); Platelet Count 178 T/CUMM (130-400); Red Blood Count 3.54 MC/CUMM (3.8-5.5); Red Cell Distribution Width 15.7 % (9.3-17.3); White Blood Count 11.9 T/CUMM (4-12)
[2022-01-20 04:23] LABS: Calcium 9.2 MG/DL (8.5-10.1); Osmolality,Calculated 295.1 MOS/KG (273-304); Potassium 4.5 MMOL/L (3.5-5.1)
[2022-01-20 04:44] LABS: Hypochromia Slight; Lymphocytes 5 % (20-55); Microcytosis Slight; Platelet Estimate Adequate; Total Cells Counted 100
[2022-01-20] MEDS: ALBUTEROL/IPRATROPIUM 3 ML NEB RESP TX SCH ×3 (07:33→19:49)
[2022-01-20] MEDS: METOPROLOL TARTRATE 100 MG TABLET PO SCH ×2 (08:33→20:42)
[2022-01-20] MEDS: DOXAZOSIN 1 MG TABLET PO SCH (08:33)
[2022-01-20] MEDS: INSULIN GLARGINE 100 UNIT/ML SUBCUT SCH (08:33)
[2022-01-20] MEDS: HEPARIN 5,000 UNIT/1 ML VIAL SUBCUT SCH ×2 (08:34→20:42)
[2022-01-20] MEDS: hydrALAZINE 25 MG TABLET PO SCH ×3 (08:34→20:42)
[2022-01-20] MEDS: ASPIRIN EC 81 MG TABLET PO SCH (08:34)
[2022-01-20] MEDS: PANTOPRAZOLE 40 MG VIAL IV SCH (08:35)
[2022-01-20] MEDS: POLYETHYLENE GLYCOL POWDER 17 GM PACK PO SCH (08:40)
[2022-01-20] MEDS: cefTRIAXone 2,000 MG in SODIUM CHLORIDE 0.9% 100 ML IV SCH (10:03)
[2022-01-20] MEDS: AZITHROMYCIN INJ 500 MG in SODIUM CHLORIDE 0.9% 250 ML IV SCH (11:46)
[2022-01-20] MEDS: ATORVASTATIN 40 MG TABLET PO SCH (20:42)
[2022-01-21] MEDS: ALBUTEROL/IPRATROPIUM 3 ML NEB RESP TX SCH ×4 (00:11→19:28)
[2022-01-21] MEDS: methylPREDNISolone SOD SUC 40 MG/1 ML VIAL IV SCH ×3 (00:58→21:34)
[2022-01-21] MEDS: INSULIN LISPRO 100 UNIT/ML SUBCUT SCH ×5 (00:58→23:46)
[2022-01-21 04:16] LABS: ABG Base Excess -3.2 MMOL/L (-2.5-2.5); ABG HCO3 21.7 MMOL/L (20-26); ABG Oxygen Saturation 93.6 % (95-100); ABG PCO2 34.9 MM HG (35-48); ABG PH 7.391 (7.35-7.45); ABG TCO2 19.5 MMOL/L (23-27)
[2022-01-21 04:28] LABS: Basophils % 0.3 % (0.0-0.8); Immature Granulocytes % 9.9 %; Immature Granulocytes Absolute 1.13 #; Lymphocytes # 0.4 10*3/uL (1.4-4.0); Lymphocytes % 3.6 % (21.2-54.2); Mean Corpuscular Volume 87.3 FL (87-102); Mean Platelet Volume 10.6 FL (9.6-12.0); Monocytes # 1.1 10*3/uL (0.11-0.8); Monocytes % 9.5 % (1.7-12.7); Neutrophils % 76.7 % (38.7-73.9); Platelet Count 209 T/CUMM (130-400); Red Blood Count 3.32 MC/CUMM (3.8-5.5); Red Cell Distribution Width 15.8 % (9.3-17.3); White Blood Count 11.5 T/CUMM (4-12)
[2022-01-21 04:30] LABS: Calcium 8.9 MG/DL (8.5-10.1); Potassium 4.4 MMOL/L (3.5-5.1)
[2022-01-21 04:57] LABS: Band Neutrophils 1 % (0-10); Lymphocytes 13 % (20-55); Platelet Estimate Normal; Total Cells Counted 100
[2022-01-21] MEDS: METOPROLOL TARTRATE 100 MG TABLET PO SCH ×2 (08:13→21:33)
[2022-01-21] MEDS: POLYETHYLENE GLYCOL POWDER 17 GM PACK PO SCH (08:13)
[2022-01-21] MEDS: ASPIRIN EC 81 MG TABLET PO SCH (08:14)
[2022-01-21] MEDS: HEPARIN 5,000 UNIT/1 ML VIAL SUBCUT SCH ×2 (08:14→21:33)
[2022-01-21] MEDS: DOXAZOSIN 1 MG TABLET PO SCH (08:14)
[2022-01-21] MEDS: INSULIN GLARGINE 100 UNIT/ML SUBCUT SCH (08:15)
[2022-01-21] MEDS: hydrALAZINE 20 MG/1 ML VIAL IV PRN (08:16)
[2022-01-21] MEDS: PANTOPRAZOLE 40 MG VIAL IV SCH (08:18)
[2022-01-21] MEDS: hydrALAZINE 25 MG TABLET PO SCH ×3 (08:45→21:33)
[2022-01-21] MEDS: cefTRIAXone 2,000 MG in SODIUM CHLORIDE 0.9% 100 ML IV SCH (10:10)
[2022-01-21] MEDS: AZITHROMYCIN INJ 500 MG in SODIUM CHLORIDE 0.9% 250 ML IV SCH (11:00)
[2022-01-21] MEDS: ATORVASTATIN 40 MG TABLET PO SCH (21:33)
[2022-01-22] MEDS: ALBUTEROL/IPRATROPIUM 3 ML NEB RESP TX SCH ×4 (00:20→19:28)
[2022-01-22 04:41] LABS: Basophils % 0.3 % (0.0-0.8); Eosinophils % 0.1 % (0.00-10.9); Hematocrit 30.7 VOL% (42.0-52.0); Hemoglobin 9.4 GM/DL (14.0-18.0); Immature Granulocytes % 8.1 %; Immature Granulocytes Absolute 0.99 #; Lymphocytes # 0.5 10*3/uL (1.4-4.0); Lymphocytes % 4.4 % (21.2-54.2); Mean Corpuscular HGB Conc 30.6 GM/DL (32-36); Mean Corpuscular Volume 87.5 FL (87-102); Mean Platelet Volume 10.5 FL (9.6-12.0); Monocytes # 1.5 10*3/uL (0.11-0.8); Monocytes % 12.3 % (1.7-12.7); Neutrophils % 74.8 % (38.7-73.9); Platelet Count 224 T/CUMM (130-400); Red Blood Count 3.51 MC/CUMM (3.8-5.5); Red Cell Distribution Width 15.7 % (9.3-17.3); White Blood Count 12.2 T/CUMM (4-12)
[2022-01-22 05:06] LABS: Calcium 9.3 MG/DL (8.5-10.1); Potassium 4.6 MMOL/L (3.5-5.1)
[2022-01-22] MEDS: INSULIN LISPRO 100 UNIT/ML SUBCUT SCH ×3 (05:17→18:00)
[2022-01-22 05:22] LABS: Band Neutrophils 1 % (0-10); Lymphocytes 15 % (20-55); Platelet Estimate Normal; Total Cells Counted 100
[2022-01-22] MEDS: hydrALAZINE 25 MG TABLET PO SCH ×2 (08:10→15:36)
[2022-01-22] MEDS: POLYETHYLENE GLYCOL POWDER 17 GM PACK PO SCH (08:10)
[2022-01-22] MEDS: DOXAZOSIN 1 MG TABLET PO SCH (08:10)
[2022-01-22] MEDS: ASPIRIN EC 81 MG TABLET PO SCH (08:10)
[2022-01-22] MEDS: METOPROLOL TARTRATE 100 MG TABLET PO SCH ×2 (08:10→22:20)
[2022-01-22] MEDS: methylPREDNISolone SOD SUC 40 MG/1 ML VIAL IV SCH (08:14)
[2022-01-22] MEDS: PANTOPRAZOLE 40 MG VIAL IV SCH (08:16)
[2022-01-22] MEDS: HEPARIN 5,000 UNIT/1 ML VIAL SUBCUT SCH ×2 (08:18→22:20)
[2022-01-22] MEDS: INSULIN GLARGINE 100 UNIT/ML SUBCUT SCH (09:55)
[2022-01-22] MEDS: cefTRIAXone 2,000 MG in SODIUM CHLORIDE 0.9% 100 ML IV SCH (10:02)
[2022-01-22] MEDS: predniSONE 20 MG TABLET PO SCH (22:21)
[2022-01-22] MEDS: ATORVASTATIN 40 MG TABLET PO SCH (22:21)
[2022-01-23] MEDS: ALBUTEROL/IPRATROPIUM 3 ML NEB RESP TX SCH ×4 (00:39→19:15)
[2022-01-23] MEDS: INSULIN LISPRO 100 UNIT/ML SUBCUT SCH ×4 (01:19→18:07)
[2022-01-23 06:10] LABS: Basophils # 0.1 10*3/uL (0.0-0.2); Basophils % 0.4 % (0.0-0.8); Eosinophils % 0.3 % (0.00-10.9); Hematocrit 31.1 VOL% (42.0-52.0); Hemoglobin 9.7 GM/DL (14.0-18.0); Immature Granulocytes % 5.8 %; Lymphocytes # 0.7 10*3/uL (1.4-4.0); Lymphocytes % 5.2 % (21.2-54.2); Mean Corpuscular HGB Conc 31.2 GM/DL (32-36); Mean Corpuscular Volume 87.6 FL (87-102); Mean Platelet Volume 11.6 FL (9.6-12.0); Monocytes # 1.4 10*3/uL (0.11-0.8); Monocytes % 9.8 % (1.7-12.7); NRBC # 0.02 10*3/uL; Neutrophils % 78.5 % (38.7-73.9); Platelet Count 235 T/CUMM (130-400); Red Blood Count 3.55 MC/CUMM (3.8-5.5); Red Cell Distribution Width 15.7 % (9.3-17.3); White Blood Count 13.7 T/CUMM (4-12)
[2022-01-23 06:26] LABS: Calcium 9.5 MG/DL (8.5-10.1); Osmolality,Calculated 315.7 MOS/KG (273-304); Potassium 4.9 MMOL/L (3.5-5.1)
[2022-01-23 07:09] LABS: Anisocytosis 1+; Band Neutrophils 5 % (0-10); Burr Cells 1+; Eosinophils 2 % (0-10); Lymphocytes 9 % (20-55); Metamyelocytes 2 %; Nucleated Red Blood Cells 2 /100 WBC (0-5); Ovalocytes Few; Platelet Estimate Normal; Total Cells Counted 100
[2022-01-23] MEDS: DOXAZOSIN 1 MG TABLET PO SCH (10:33)
[2022-01-23] MEDS: INSULIN GLARGINE 100 UNIT/ML SUBCUT SCH (10:33)
[2022-01-23] MEDS: METOPROLOL TARTRATE 100 MG TABLET PO SCH ×2 (10:33→21:28)
[2022-01-23] MEDS: PANTOPRAZOLE 40 MG VIAL IV SCH (10:34)
[2022-01-23] MEDS: predniSONE 20 MG TABLET PO SCH ×2 (10:34→21:29)
[2022-01-23] MEDS: POLYETHYLENE GLYCOL POWDER 17 GM PACK PO SCH (10:34)
[2022-01-23] MEDS ORDERED: SODIUM CHLORIDE 0.9% 1,000 ML IV PRN (11:17)
[2022-01-23] MEDS ORDERED: MAGNESIUM HYDROXIDE SUSP 30 ML UDCUP PO ONE (11:30)
[2022-01-23] MEDS: cefTRIAXone 2,000 MG in SODIUM CHLORIDE 0.9% 100 ML IV SCH (12:04)
[2022-01-23] MEDS: BISACODYL 5 MG TABLET PO SCH ×2 (12:04→21:29)
[2022-01-23 14:33] LABS: Hematocrit 28.2 VOL% (42.0-52.0); Hemoglobin 8.8 GM/DL (14.0-18.0)
[2022-01-23] MEDS ORDERED: POLYETHYLENE GLYCOL 3350/ELECTROLYTES 4,000 ML BOTTLE PO ONE (18:00)
[2022-01-23] MEDS: ATORVASTATIN 40 MG TABLET PO SCH (21:28)
[2022-01-24] MEDS: ALBUTEROL/IPRATROPIUM 3 ML NEB RESP TX SCH ×4 (00:15→20:03)
[2022-01-24] MEDS: INSULIN LISPRO 100 UNIT/ML SUBCUT SCH ×4 (01:20→19:02)
[2022-01-24] MEDS: BISACODYL 5 MG TABLET PO SCH (03:52)
[2022-01-24 05:14] LABS: Basophils % 0.2 % (0.0-0.8); Eosinophils # 0.1 10*3/uL (0.0-0.87); Eosinophils % 0.5 % (0.00-10.9); Hematocrit 28.1 VOL% (42.0-52.0); Immature Granulocytes % 3.2 %; Immature Granulocytes Absolute 0.49 #; Lymphocytes # 0.7 10*3/uL (1.4-4.0); Lymphocytes % 4.7 % (21.2-54.2); Mean Corpuscular Volume 86.5 FL (87-102); Mean Platelet Volume 10.7 FL (9.6-12.0); Monocytes # 1.3 10*3/uL (0.11-0.8); Monocytes % 8.7 % (1.7-12.7); NRBC # 0.02 10*3/uL; Neutrophils % 82.7 % (38.7-73.9); Platelet Count 224 T/CUMM (130-400); Red Blood Count 3.25 MC/CUMM (3.8-5.5); White Blood Count 15.4 T/CUMM (4-12)
[2022-01-24 05:32] LABS: Calcium 8.9 MG/DL (8.5-10.1); Osmolality,Calculated 306.4 MOS/KG (273-304); Potassium 4.4 MMOL/L (3.5-5.1)
[2022-01-24 05:52] LABS: Lymphocytes 5 % (20-55); Total Cells Counted 100
[2022-01-24 05:53] LABS: Platelet Estimate Normal
[2022-01-24] MEDS: LACTATED RINGERS 1,000 ML IV SCH (08:35)
[2022-01-24] MEDS ORDERED: LIDOCAINE 2% 5 ML VIAL ONE (09:12)
[2022-01-24] MEDS ORDERED: propofoL 200 MG/20 ML VIAL IV ONE (09:12)
[2022-01-24] MEDS: POLYETHYLENE GLYCOL POWDER 17 GM PACK PO SCH (10:36)
[2022-01-24] MEDS: cefTRIAXone 2,000 MG in SODIUM CHLORIDE 0.9% 100 ML IV SCH (10:37)
[2022-01-24] MEDS: DOXAZOSIN 1 MG TABLET PO SCH (10:38)
[2022-01-24] MEDS: predniSONE 20 MG TABLET PO SCH ×2 (10:38→20:50)
[2022-01-24] MEDS: INSULIN GLARGINE 100 UNIT/ML SUBCUT SCH (10:38)
[2022-01-24] MEDS: METOPROLOL TARTRATE 100 MG TABLET PO SCH ×2 (10:38→20:51)
[2022-01-24] MEDS: PANTOPRAZOLE 40 MG VIAL IV SCH (10:51)
[2022-01-24] MEDS: ATORVASTATIN 40 MG TABLET PO SCH (20:51)
[2022-01-25] MEDS: ALBUTEROL/IPRATROPIUM 3 ML NEB RESP TX SCH ×3 (00:21→14:23)
[2022-01-25] MEDS: INSULIN LISPRO 100 UNIT/ML SUBCUT SCH ×3 (01:07→14:37)
[2022-01-25 04:26] VITALS: BP 164/82
[2022-01-25 05:10] LABS: Basophils % 0.1 % (0.0-0.8); Eosinophils % 0.1 % (0.00-10.9); Hematocrit 25.3 VOL% (42.0-52.0); Immature Granulocytes % 2.3 %; Immature Granulocytes Absolute 0.31 #; Lymphocytes # 0.5 10*3/uL (1.4-4.0); Lymphocytes % 3.4 % (21.2-54.2); Mean Corpuscular HGB Conc 31.6 GM/DL (32-36); Mean Corpuscular Volume 86.6 FL (87-102); Mean Platelet Volume 10.5 FL (9.6-12.0); Monocytes # 0.9 10*3/uL (0.11-0.8); Neutrophils % 87.1 % (38.7-73.9); Platelet Count 201 T/CUMM (130-400); Red Blood Count 2.92 MC/CUMM (3.8-5.5); Red Cell Distribution Width 15.9 % (9.3-17.3); White Blood Count 13.5 T/CUMM (4-12)
[2022-01-25 05:30] LABS: Calcium 8.8 MG/DL (8.5-10.1); Osmolality,Calculated 319.4 MOS/KG (273-304); Potassium 4.6 MMOL/L (3.5-5.1)
[2022-01-25 05:44] LABS: Lymphocytes 3 % (20-55); Platelet Estimate Normal; Total Cells Counted 100
[2022-01-25] MEDS: LACTATED RINGERS 1,000 ML IV SCH (14:37)
[2022-01-25] MEDS: INSULIN GLARGINE 100 UNIT/ML SUBCUT SCH (14:38)
[2022-01-25] MEDS: DOXAZOSIN 1 MG TABLET PO SCH (14:38)
[2022-01-25] MEDS: METOPROLOL TARTRATE 100 MG TABLET PO SCH (14:39)
[2022-01-25] MEDS: PANTOPRAZOLE 40 MG VIAL IV SCH (14:39)
[2022-01-25] MEDS: POLYETHYLENE GLYCOL POWDER 17 GM PACK PO SCH (14:39)
[2022-01-25] MEDS: cefTRIAXone 2,000 MG in SODIUM CHLORIDE 0.9% 100 ML IV SCH (14:39)
[2022-01-25] MEDS: predniSONE 20 MG TABLET PO SCH (14:39)
== END 2022-01-25 15:42 | disposition home health service (06) | DRG 291 ==
LOC: N.ED 12:13 → N.EDINP 12:13 → N.2W 17:04 → SUATTDRO 01-07 09:49 → N.3E 01-08 17:32 → N.CC 01-13 08:13 → N.TELEN 01-22 18:36
PROVIDERS: ADMIT Emergency Medicine; ATTEND Hospitalist